=== PATIENT | female | born 1975 ===

== ENCOUNTER → 2018-02-05 | Outpatient (CLI) | payer MEDICAID, OTHER | LOC: CFH 11:06 | PROVIDERS: ATTEND Obstetrics & Gynecology | DX: Z12.31 Encounter for screening mammogram for malignant neoplasm of breast (principal) | CPT/HCPCS: 77067 ==

== ENCOUNTER 2020-05-28 14:42 | Outpatient (CLI) | payer OTHER ==
[2020-05-28] MEDS ORDERED: [UNRECOGNIZED DRUG - OTHER] PO (15:34)
[2020-05-28] MEDS ORDERED: IBUP200C8 PO (15:34)
[2020-05-28] MEDS ORDERED: MULT-658 PO (15:34)
[2020-05-28 15:35] LABS: BASOPHILS # (AUTO) 0.02 x10^3/uL (0-0.1); BASOPHILS % (AUTO) 0 % (0-1); EOSINOPHILS # (AUTO) 0.03 x10^3/uL (0-0.4); EOSINOPHILS % (AUTO) 0 % (1-7); LYMPHOCYTES # (AUTO) 2.29 x10^3/uL (1-3.4); LYMPHOCYTES % (AUTO) 27 % (22-44); MD NO; MEAN CORPUSCULAR HEMOGLOBIN 29.6 pg (27.0-34.8); MEAN CORPUSCULAR HGB CONC 33.7 g/dL (32.4-35.8); MEAN PLATELET VOLUME 7.5 fL (7.4-10.4); MONOCYTES # (AUTO) 0.69 x10^3/uL (0.2-0.8); MONOCYTES % (AUTO) 8 % (2-9); NEUTROPHILS # (AUTO) 5.46 x10^3/uL (1.8-6.8); NEUTROPHILS % (AUTO) 64 % (42-75); PLATELET COUNT 304 x10^3/uL (130-400); RED BLOOD COUNT 4.71 x10^6/uL (3.82-5.3); RED CELL DISTRIBUTION WIDTH 13.2 % (9.6-15.2)
[2020-05-28 15:46] LABS: ALANINE AMINOTRANSFERASE 40 U/L (12-78); ALBUMIN 3.7 g/dL (3.4-5.0); ANION GAP 8 mmol/L (5-15); CALCIUM 9.7 mg/dL (8.5-10.1); CHLORIDE 107 mmol/L (98-107)
[2020-05-28 15:51] LABS: ALKALINE PHOSPHATASE 91 U/L (45-117); BILIRUBIN,TOTAL 0.5 mg/dL (0.2-1.0); TOTAL PROTEIN 8.3 g/dL (6.4-8.2)
[2020-05-28 17:07] LABS: MICROSCOPIC NOT IND
== END 2020-05-28 23:59 | disposition home or self-care (01) ==
LOC: STAR 14:42
PROVIDERS: ATTEND Obstetrics & Gynecology
DX: Z01.812 Encounter for preprocedural laboratory examination (principal); Z20.828 Contact with and (suspected) exposure to other viral communicable diseases; N83.292 Other ovarian cyst, left side; N92.0 Excessive and frequent menstruation with regular cycle
CPT/HCPCS: 36415; 80053; 81003; 84702; 85025; 87635

== ENCOUNTER 2020-06-01 05:34 | Day surgery (SDC) | payer OTHER ==
[~2020-06-01] VITALS: Ht 167.6 cm; Wt 79.0 kg
[~2020-06-01 05:34] MED LIST: IBUP200C8 PO; MULT-658 PO; [UNRECOGNIZED DRUG - OTHER] PO
[2020-06-01] MEDS ORDERED: LACTATED RINGERS 1,000 ML IV SCH (06:02)
[2020-06-01] MEDS ORDERED: CHLORHEXIDINE 15 ML UDC MM STA (06:03)
[2020-06-01] MEDS ORDERED: CHLORHEXIDINE 15 ML UDC ONE (06:08)
[2020-06-01] MEDS ORDERED: BUPIVACAINE/PF-EPI 0.25% 1:200K ONE (06:52)
[2020-06-01] MEDS ORDERED: SILVER NITRATE STICK TP ONE (06:52)
[2020-06-01] MEDS ORDERED: OXYTOCIN 10 UNITS/ML, 1ML ONE (06:52)
[2020-06-01 07:01] LABS: HCG UR SG 1.011 (1.003-1.030)
[2020-06-01] MEDS ORDERED: FENTANYL PF 250 MCG/5ML ONE (07:28)
[2020-06-01] MEDS ORDERED: MIDAZOLAM 1 MG/ML, 2ML ONE (07:28)
[2020-06-01] MEDS ORDERED: SUCCINYLCHOLINE 20 MG/ML, 10ML ONE (07:30)
[2020-06-01] MEDS ORDERED: GLYCOPYRROLATE 0.2MG/1ML, 5ML ONE (07:30)
[2020-06-01] MEDS ORDERED: KETOROLAC 30 MG/1 ML ONE (07:30)
[2020-06-01] MEDS ORDERED: ONDANSETRON 2MG/ML, 2ML ONE ×2 (07:42→08:01)
[2020-06-01] MEDS ORDERED: CEFAZOLIN 1,000 MG ONE (07:42)
[2020-06-01] MEDS ORDERED: ROCURONIUM 10MG/ML,5ML ONE (07:42)
[2020-06-01] MEDS ORDERED: PROPOFOL 10 MG/ML, 20ML ONE (07:42)
[2020-06-01] MEDS ORDERED: DEXAMETHASONE 4 MG/ML, 1ML ONE ×2 (07:42→08:01)
[2020-06-01] MEDS ORDERED: PROMETHAZINE 25 MG/ML, 1ML IVPush PRN (08:00)
[2020-06-01] MEDS ORDERED: PROMETHAZINE 12.5 MG SUPP PR PRN (08:00)
[2020-06-01] MEDS ORDERED: hydrALAzine 20 MG/ML, 1ML IV PRN (08:00)
[2020-06-01] MEDS ORDERED: EPHEDRINE 50 MG/ML, 1ML IVPush PRN (08:00)
[2020-06-01] MEDS ORDERED: MEPERIDINE/PF 25MG/0.5ML IVPush PRN (08:00)
[2020-06-01] MEDS ORDERED: ONDANSETRON 2MG/ML, 2ML IVPush PRN (08:00)
[2020-06-01] MEDS ORDERED: ACETAMINOPHEN 325 MG TABLET PO PRN (08:00)
[2020-06-01] MEDS ORDERED: HYDROmorphone 1 MG/ML, 1ML INJ IVPush PRN (08:00)
[2020-06-01] MEDS ORDERED: DIPHENHYDRAMINE 50 MG/ML, 1ML IVPush PRN (08:00)
[2020-06-01] MEDS ORDERED: FENTANYL PF 100 MCG/2ML IV PRN (08:00)
[2020-06-01] MEDS ORDERED: LABETALOL 5MG/ML, 20ML IV PRN (08:00)
[2020-06-01] MEDS ORDERED: DIAZEPAM 5 MG/ML, 2ML IVPush PRN (08:00)
[2020-06-01] MEDS ORDERED: ALBUTEROL SULFATE 2.5 MG/3 ML NPPB PRN (08:00)
[2020-06-01] MEDS ORDERED: OXYcodone 5 MG/5 ML ORAL.SOL UDC PO PRN (08:00)
[2020-06-01] MEDS ORDERED: MIDAZOLAM 1 MG/ML, 2ML IV PRN (08:00)
[2020-06-01] MEDS ORDERED: SUGAMMADEX 200 MG/2 ML IVPush ONE (08:24)
[2020-06-01] MEDS ORDERED: MEPERIDINE/PF 25MG/ML,1ML ONE (09:18)
[2020-06-01] MEDS ORDERED: ACETAMINOPHEN 650 MG/20.3 ML UDC ONE (09:18)
[2020-06-01] MEDS ORDERED: OXYcodone 5 MG/5 ML ORAL.SOL UDC ONE (09:18)
== END 2020-06-01 11:15 | disposition home or self-care (01) ==
LOC: OUT 05:34
PROVIDERS: ATTEND Obstetrics & Gynecology
DX: N93.8 Other specified abnormal uterine and vaginal bleeding (principal); D27.1 Benign neoplasm of left ovary; N83.12 Corpus luteum cyst of left ovary; N84.0 Polyp of corpus uteri; N83.8 Other noninflammatory disorders of ovary, fallopian tube and broad ligament; N92.0 Excessive and frequent menstruation with regular cycle; D64.9 Anemia, unspecified; Z79.899 Other long term (current) drug therapy; Z88.8 Allergy status to other drugs, medicaments and biological substances; Z98.51 Tubal ligation status; Z98.890 Other specified postprocedural states
CPT/HCPCS: 36415; 58563; 58661; 81025; 86850; 86900; 88305; J0330; J0690; J1100; J1885; J2175; J2250; J2405; J2704; J3010; J7120; J2590